=== PATIENT | male | born 1980 | race African-American/Black ===

== ENCOUNTER 2017-04-16 11:43 | Inpatient (IN) | payer MEDICAID ==
[~2017-04-16] VITALS: Ht 165.1 cm; Wt 57.6 kg
[2017-04-16] MEDS ORDERED: SODIUM CHLORIDE 0.9% 1,000 ML IV ONE (16:39)
[2017-04-16] MEDS ORDERED: ONDANSETRON HCL 4MG/2ML VIAL IV STA (16:39)
[2017-04-16] MEDS ORDERED: KETOROLAC 30MG/ML VIAL IV STA (16:39)
[2017-04-16 17:09] LABS: HEMATOCRIT. 46.3 % (42.0-52.0); HEMOGLOBIN. 15.3 g/dL (14.0-18.0); MEAN CORPUSCULAR HEMOGLOBIN 31.8 pg (28.0-32.0); MEAN CORPUSCULAR VOLUME 96.4 fL (80.0-94.0); MEAN PLATELET VOLUME 8.2 fl (7.4-10.4); PLATELET 345 x1000/uL (130-400); RED CELL DISTRIBUTION WIDTH 13.2 % (11.6-14.6)
[2017-04-16 17:11] LABS: PROTHROMBIN TIME 10.5 sec (9.4-11.6)
[2017-04-16 17:13] LABS: CARBON DIOXIDE 24 mEq/L (21-32); CHLORIDE 102 mEq/L (98-107)
[2017-04-16 18:33] LABS: PLATELET ESTIMATE NORMAL
[2017-04-16] MEDS ORDERED: PIPERACILLIN/TAZ 3.375G PREMIX 50 ML IV NR (18:43)
[2017-04-16] MEDS ORDERED: MORPHINE SULFATE 4 MG/ML CPJ (NOT FOR IM USE) IV ONE ×2 (18:45→21:15)
[2017-04-16] MEDS ORDERED: PIPERACILLIN/TAZOBACTAM 3.375GM/50ML PREMIX IV ONE (18:45)
[2017-04-17] MEDS: ONDANSETRON HCL 4MG/2ML VIAL IV PRN (03:19)
[2017-04-17] MEDS: MORPHINE SULFATE 4 MG/ML CPJ (NOT FOR IM USE) IV PRN ×5 (03:20→23:34)
[2017-04-17] MEDS ORDERED: DEXT 5%/0.45% NACL KCL 30MEQ/L 1,000 ML IV SCH (05:00)
[2017-04-17] MEDS ORDERED: KETOROLAC 30MG/ML VIAL ONE (06:34)
[2017-04-17 08:30] VITALS: BP 150/93
[2017-04-17 09:00] VITALS: BP 150/93
[2017-04-17] MEDS: FAMOTIDINE 20MG/2ML VIAL IV SCH ×2 (09:55→21:43)
[2017-04-17 12:00] VITALS: BP 139/76
[2017-04-17 12:58] LABS: BASOPHILS % 0.4 % (0.0-2.0); EOSINOPHILS % 0.8 % (0.0-5.0); HEMATOCRIT. 38.6 % (42.0-52.0); HEMOGLOBIN. 13.3 g/dL (14.0-18.0); LYMPHOCYTES % 11.3 % (20.0-50.0); MEAN CORPUSCULAR HEMOGLOBIN 32.4 pg (28.0-32.0); MEAN CORPUSCULAR VOLUME 94.2 fL (80.0-94.0); MONOCYTES % 13.6 % (2.0-8.0); NEUTROPHILS % 73.9 % (40.0-76.0); PLATELET 302 x1000/uL (130-400)
[2017-04-17 13:44] LABS: CARBON DIOXIDE 25 mEq/L (21-32); CHLORIDE 104 mEq/L (98-107)
[2017-04-17 16:00] VITALS: BP 174/109
[2017-04-17] MEDS: CLONIDINE 0.1MG TABLET PO PRN (18:16)
[2017-04-17] MEDS: ACETAMINOPHEN 325MG TABLET PO PRN ×2 (18:17→23:33)
[2017-04-17] MEDS: DEXT 5%/0.45% NACL KCL 30MEQ/L 1,000 ML IV SCH (18:17)
[2017-04-17 19:38] LABS: CLARITY URINE CLEAR (CLEAR); COLOR URINE YELLOW (YELLOW); KETONES URINE 3+ (NEGATIVE); LEUKOCYTE ESTERASE URINE NEGATIVE (NEGATIVE); NITRITE URINE NEGATIVE (NEGATIVE); OCCULT BLOOD URINE NEGATIVE (NEGATIVE); PROTEIN URINE 1+ (NEGATIVE); SPECIFIC GRAVITY URINE 1.027 (1.005-1.030)
[2017-04-17 20:00] VITALS: BP 137/87
[2017-04-18] VITALS (8 sets, daily range): BP systolic 130–208; BP diastolic 97–111
[2017-04-18] MEDS: DEXT 5%/0.45% NACL KCL 30MEQ/L 1,000 ML IV SCH (03:47)
[2017-04-18] MEDS: PIPERACILLIN/TAZ 3.375G PREMIX 50 ML IV SCH ×3 (03:47→20:25)
[2017-04-18] MEDS: MORPHINE SULFATE 4 MG/ML CPJ (NOT FOR IM USE) IV PRN ×5 (03:48→20:26)
[2017-04-18] MEDS: CLONIDINE 0.1MG TABLET PO PRN ×2 (04:09→16:09)
[2017-04-18 06:27] LABS: BASOPHILS % 0.4 % (0.0-2.0); HEMATOCRIT. 37.3 % (42.0-52.0); HEMOGLOBIN. 12.5 g/dL (14.0-18.0); LYMPHOCYTES % 8.6 % (20.0-50.0); MEAN CORPUSCULAR VOLUME 95.6 fL (80.0-94.0); MEAN PLATELET VOLUME 8.3 fl (7.4-10.4); MONOCYTES % 13.6 % (2.0-8.0); NEUTROPHILS % 76.4 % (40.0-76.0); PLATELET 304 x1000/uL (130-400); RED CELL DISTRIBUTION WIDTH 13.1 % (11.6-14.6)
[2017-04-18 07:51] LABS: CARBON DIOXIDE 26 mEq/L (21-32); CHLORIDE 103 mEq/L (98-107)
[2017-04-18] MEDS: FAMOTIDINE 20MG/2ML VIAL IV SCH ×2 (08:12→23:43)
[2017-04-18] MEDS ORDERED: CLONIDINE HCL 0.2MG/24HR PATCH TD SCH (13:00)
[2017-04-18] MEDS ORDERED: SODIUM CHLORIDE 0.9% IV PRN (14:00)
[2017-04-18] MEDS ORDERED: ENALAPRIL IV PRN (14:00)
[2017-04-18] MEDS: DEXT 5%/0.45% NACL KCL 40MEQ/L 1,000 ML IV SCH (15:15)
[2017-04-18] MEDS: ONDANSETRON HCL 4MG/2ML VIAL IV PRN ×2 (15:45→20:25)
[2017-04-18] MEDS ORDERED: KETOROLAC 30MG/ML VIAL IV NR (17:00)
[2017-04-18] MEDS ORDERED: ENALAPRIL 2.5MG/2ML VIAL 2ML IV SCH (18:00)
[2017-04-19] VITALS: BP 130/79
[2017-04-19] MEDS: MORPHINE SULFATE 4 MG/ML CPJ (NOT FOR IM USE) IV PRN ×4 (00:47→13:00)
[2017-04-19] MEDS: DEXT 5%/0.45% NACL KCL 40MEQ/L 1,000 ML IV SCH (02:57)
[2017-04-19] MEDS: PIPERACILLIN/TAZ 3.375G PREMIX 50 ML IV SCH ×2 (03:06→10:52)
[2017-04-19 04:00] VITALS: BP 178/105
[2017-04-19] MEDS: CLONIDINE 0.1MG TABLET PO PRN (04:53)
[2017-04-19 07:28] LABS: HEMATOCRIT. 36.5 % (42.0-52.0); HEMOGLOBIN. 12.3 g/dL (14.0-18.0); MEAN CORPUSCULAR VOLUME 95.3 fL (80.0-94.0); MEAN PLATELET VOLUME 8.4 fl (7.4-10.4); PLATELET 299 x1000/uL (130-400); RED BLOOD CELL COUNT 3.83 mill/uL (4.7-6.1); RED CELL DISTRIBUTION WIDTH 13.1 % (11.6-14.6)
[2017-04-19 07:56] LABS: CHLORIDE 103 mEq/L (98-107)
[2017-04-19 08:00] VITALS: BP 135/81
[2017-04-19 08:10] LABS: CARBON DIOXIDE 26 mEq/L (21-32)
[2017-04-19 08:12] LABS: AMYLASE 217 IU/L (25-115)
[2017-04-19] MEDS: ONDANSETRON HCL 4MG/2ML VIAL IV PRN (09:00)
[2017-04-19] MEDS: FAMOTIDINE 20MG/2ML VIAL IV SCH (09:03)
[2017-04-19 09:24] LABS: PLATELET ESTIMATE NORMAL
[2017-04-19 12:02] VITALS: BP 161/104
[2017-04-19 13:00] VITALS: BP 161/104
[2017-04-25] MEDS ORDERED: CLONIDINE HCL 0.2MG/24HR PATCH TD SCH (09:00)
== END 2017-04-19 14:40 | disposition left against medical advice (07) | DRG 282 ==
LOC: ER 11:52 → SUPCPDRO 23:55 → 6EST 04-17 07:30 → ENRESERV 04-17 07:30
PROVIDERS: ADMIT Internal Medicine Critical Care Medicine; ATTEND Internal Medicine Critical Care Medicine
DX: K85.20 Alcohol induced acute pancreatitis without necrosis or infection (principal); R65.11 Systemic inflammatory response syndrome (SIRS) of non-infectious origin with acute organ dysfunction; I10 Essential (primary) hypertension; F10.10 Alcohol abuse, uncomplicated; K86.1 Other chronic pancreatitis; D72.829 Elevated white blood cell count, unspecified; E78.5 Hyperlipidemia, unspecified; N20.0 Calculus of kidney; Z80.0 Family history of malignant neoplasm of digestive organs; Z82.49 Family history of ischemic heart disease and other diseases of the circulatory system; Z85.038 Personal history of other malignant neoplasm of large intestine
CPT/HCPCS: 36415; 74176; 80053; 81001; 82150; 83690; 85025; 85610; 87040; 93005; 96365; 96367; 96375; 99285; C1893; J1885; J2270; J2405; J2543; J3480; J3490; J7030